=== PATIENT | male | born 1970 | race Caucasian/White ===

== ENCOUNTER 2020-01-25 19:15 | Emergency (ER) | payer OTHER ==
[~2020-01-25] VITALS: Ht 170.2 cm; Wt 120.2 kg
[2020-01-25 19:32] VITALS: BP 228/147; Ht 170.2 cm; Wt 120.2 kg
== END 2020-01-25 21:34 | disposition home or self-care (01) ==
LOC: ED 19:15
DX: S00.81XA Abrasion of other part of head, initial encounter (principal); S09.8XXA Other specified injuries of head, initial encounter; I10 Essential (primary) hypertension; Y04.8XXA Assault by other bodily force, initial encounter; Y93.89 Activity, other specified; Y92.89 Other specified places as the place of occurrence of the external cause; Y99.8 Other external cause status

== ENCOUNTER 2020-10-10 18:23 | Emergency (ER) | payer OTHER, SELFPAY ==
[~2020-10-10] VITALS: Ht 170.2 cm; Wt 123.4 kg
[2020-10-10 18:25] VITALS: Ht 170.2 cm; Wt 123.4 kg
[2020-10-11 00:21] VITALS: BP 205/139
== END 2020-10-10 22:10 | disposition home or self-care (01) ==
LOC: ED 18:23
DX: U07.1 COVID-19 (principal); I10 Essential (primary) hypertension
CPT/HCPCS: U0003